=== PATIENT | female | born 1935 | race Caucasian/White ===

== ENCOUNTER → 2017-12-05 11:52 | Outpatient (CLI) | payer OTHER, SELFPAY ==
--- NOTE | 2017-12-05 | DI.US.S_ITS ---
PROCEDURE: US CAROTID DOPPLER BI INDICATIONS: VISUAL DISTRUBANCE TECHNIQUE: Color and pulse Doppler interrogation was performed of both carotid systems, with image documentation and velocity measurements. COMPARISON: [facility], , CAROTID ARTERY DOPPLER BILAT, 06/23/2011, 11:12. [facility], [place], CAROTID ARTERY DOPPLER BILAT, 03/13/2007, 11:40. FINDINGS: Stenosis calculations are based on SRU (Society of Radiologists in Ultrasound) criteria. Right side: Brachial blood pressure: 147/80 mm Hg. Common carotid artery peak systolic velocity: 68 cm/sec. Internal carotid artery peak systolic velocity: 53 cm/sec. Internal carotid artery end diastolic velocity: 18 cm/sec. External carotid artery peak systolic velocity: 54 cm/sec. ICA/CCA peak systolic ratio: 0.8. Lee scale imaging description: Minimal scattered plaque. Percent internal carotid artery stenosis: Less than 50%. Vertebral artery: Not visualized. Left side: Brachial blood pressure: 157 hours 73 mm Hg. Common carotid artery peak systolic velocity: 101 cm/sec. Internal carotid artery peak systolic velocity: 85 cm/sec. Internal carotid artery end diastolic velocity: 27 cm/sec. External carotid artery peak systolic velocity: 56 cm/sec. ICA/CCA peak systolic ratio: 18. Lee scale imaging description: Minimal scattered plaque. Percent internal carotid artery stenosis: Less than 50%. Vertebral artery: Flow direction is antegrade. IMPRESSION: Less than 50% bilateral internal carotid artery stenosis which is stable compared to prior exam. Dictated by: Per SIMMS Interpreted: Wanda Beach MD on 12/05/2017 at 12:55 Approved by: Tonie Valdivia M.D. on 12/06/2017 at 8:48
== END ==
PROVIDERS: Family Provider Family Medicine; PCP Family Medicine; Visit Provider Optometrist
DX: I65.23 Occlusion and stenosis of bilateral carotid arteries (principal); H53.9 Unspecified visual disturbance
CPT/HCPCS: 93880

== ENCOUNTER 2023-05-23 18:11 | Emergency (ER) | payer OTHER, SELFPAY ==
[2023-05-23] VITALS (7 sets, daily range): BP systolic 130–149; BP diastolic 58–100; PULSE 67–86; RESP 22–23; TEMP 36.3–36.6; O2SAT 94–95; BMI 19.5
--- NOTE | 2023-05-23 18:23 | DI.RAD.S_ITS ---
PROCEDURE: XR CHEST 1V INDICATIONS: cough TECHNIQUE: One view of the chest was acquired. COMPARISON: None. FINDINGS: Surgical changes and devices: Cardiac valvular device in place. Lungs and pleura: Lungs are clear. No pleural effusions or pneumothorax. Hyperaeration. No focal consolidation. Mediastinum: Mediastinal contours appear normal. Heart size is normal. Bones and chest wall: No suspicious bony lesions. Overlying soft tissues appear unremarkable. IMPRESSION: No acute cardiopulmonary abnormalities or focal airspace disease. Findings compatible with chronic obstructive pulmonary physiology. Dictated by: Bishop Wells M.D. on 05/23/2023 at 19:18 Approved by: Bishop Wells M.D. on 05/23/2023 at 19:19
[2023-05-23 19:40] LABS: Influenza A - CEPHEID Flu A NEGATIVE (NEGATIVE); Influenza B - CEPHEID Flu B NEGATIVE (NEGATIVE); Respiratory Syncytial Virus Negative (Negative)
[2023-05-23 19:49] LABS: COVID-19 CEPHEID 4-PLEX PCR POSITIVE (Negative)
--- NOTE | 2023-05-23 19:55 | PC.NURSE ---
Pt c/o that she has been waiting for hours and hasn't eaten all day. Pt given snacks. Dr De Luna now at bedside to discuss results.
--- NOTE | 2023-05-23 19:57 | ED.GENADULT ---
HPI - General Adult General Chief complaint: Shortness of Breath/Dyspnea Stated complaint: cough/can't sleep Time Seen by Provider: 05/23/23 18:23 Source: patient Mode of arrival: Wheelchair History of Present Illness HPI narrative: Patient is an 88-year-old female. Has a history of COPD. Not on home oxygen. Patient's tested positive for COVID about 1 week ago. She is here for evaluation of a cough which is causing her to have problems sleeping. The cough has been present for the past week or so but seems to have worsened last evening. No fevers. No belly pain. No chest pain. No change in her respiratory status. Related Data Home Medications Medication Instructions Recorded Confirmed Fish Oil (#FISH OIL CONCENTRATE) 2,000 sgl PO Q DAY ##0 05/10/11 01/09/18 VITAMIN D (Vitamin D3) 2,000 unit PO QDAY ##0 08/18/12 01/09/18 cyanocobalamin (vitamin B-12) 50 50 mcg PO ##0 10/28/15 01/09/18 mcg tablet (Vitamin B-12) vitamin E 100 unit capsule 100 unit PO #0 caps 10/28/15 01/09/18 [DIM] ##0 05/11/16 01/09/18 [PARI] ##0 08/11/16 01/09/18 [QUERCETIN] ##0 08/11/16 01/09/18 Resmed Airsense 10 CPAP #1 ea 07/13/18 07/13/18 Previous Rx's Medication Instructions Recorded Peak Flow Meter 1 dev INH BID PRN ##1 10/28/15 [NALTREXONE] 2 mg PO QDAY #100 caps 04/07/16 Allergies Allergy/AdvReac Type Severity Reaction Status Date / Time wheat [WHEAT] Allergy Severe SOB Unverified 05/23/23 18:22 diclofenac [DICLOFENAC] Allergy Unknown Unverified 05/23/23 18:22 lidocaine [LIDOCAINE] Allergy Unknown FELT Unverified 05/23/23 18:22 DRUGGED Penicillins [PENICILLINS] Allergy Unknown FAINTED;VOM Unverified 05/23/23 18:22 IT Review of Systems Constitutional Constitutional: Reports system reviewed and no additional complaints, except as documented Cardiovascular Cardiovascular: Reports system reviewed and no additional complaints, except as documented Respiratory Respiratory: Reports system reviewed and no additional complaints, except as documented Integumentary/Breasts Skin/Breast: Reports system reviewed and no additional complaints, except as documented Patient History Medical History Obstructive sleep apnea History of aortic valve replacement (08/06/16) Heterozygous factor V Leiden mutation (07/14/16) Malignant neoplasm of upper lobe of right lung (06/18/16) Mild intermittent asthma without complication (01/06/16) Basal cell carcinoma (BCC) (10/28/15) Multiple actinic keratoses (10/28/15) Cardiac arrhythmia (08/30/13) Sinoatrial node dysfunction (08/30/13) Aortic valve disorder (08/30/13) Anemia Vitamin D deficiency Curvature of spine (09/25/10) Osteoporosis (09/25/10) Social History Smoking Status: Never smoker Smoking Status: Never smoker Substance Use Type: does not use Exam Initial Vital Signs Initial Vital Signs: Vital Signs Temperature 97.4 F L 05/23/23 18:18 Pulse Rate 73 05/23/23 18:18 Respiratory Rate 22 05/23/23 18:18 Blood Pressure 130/58 L 05/23/23 18:18 Pulse Oximetry 94 05/23/23 18:18 Oxygen Delivery Method Room Air 05/23/23 18:18 Resp Effort & Inspection: normal respiratory effort Auscultation: clear to auscultation bilaterally Cardio Rate: regular rate Rhythm: regular rhythm Neuro General: patient alert and patient awake Course Orders Ordered: ED Orders 05/23/23 18:23 XR chest 1V Stat 05/23/23 18:50 Covid-19 + FLU A/B + RSV - PCR Stat Vital Signs Vital signs: Vital Signs - 8 hr 05/23/23 18:18 05/23/23 18:45 05/23/23 18:46 Temperature 97.4 F L Pulse Rate 73 67 68 Respiratory Rate 22 23 Blood Pressure 130/58 L Pulse Oximetry 94 94 94 Oxygen Delivery Method Room Air 05/23/23 18:46 05/23/23 19:00 05/23/23 19:00 Temperature Pulse Rate 67 Respiratory Rate 22 Blood Pressure 131/100 H 134/60 Pulse Oximetry 95 Oxygen Delivery Method 05/23/23 19:30 05/23/23 19:30 05/23/23 20:01 Temperature Pulse Rate 74 86 Respiratory Rate 23 22 Blood Pressure 149/65 H 149/65 H Pulse Oximetry 95 95 Oxygen Delivery Method Room Air 05/23/23 20:11 Temperature 97.8 F Pulse Rate Respiratory Rate Blood Pressure Pulse Oximetry Oxygen Delivery Method Medical Decision Making Lab Data Lab results reviewed: Yes I reviewed the patient's lab results. Labs: Lab Results 05/23/23 Range/Units 18:50 SARS-CoV-2 (PCR) Positive H (Negative) Influenza A (RT-PCR) Flu a negative (NEGATIVE) Influenza B (RT-PCR) Flu b negative (NEGATIVE) RSV (PCR) Negative (Negative) Imaging Data Chest x-ray: Radiologist's Impression: PROCEDURE: XR CHEST 1V INDICATIONS: cough TECHNIQUE: One view of the chest was acquired. COMPARISON: None. FINDINGS: Surgical changes and devices: Cardiac valvular device in place. Lungs and pleura: Lungs are clear. No pleural effusions or pneumothorax. Hyperaeration. No focal consolidation. Mediastinum: Mediastinal contours appear normal. Heart size is normal. Bones and chest wall: No suspicious bony lesions. Overlying soft tissues appear unremarkable. IMPRESSION: No acute cardiopulmonary abnormalities or focal airspace disease. Findings compatible with chronic obstructive pulmonary physiology ECG Data Attestation: I personally reviewed and interpreted this ECG as follows: Interpretation: Sinus rhythm Ventricular rate is [address] T wave changes MDM Narrative Medical decision making narrative: Patient is COVID positive. Chest x-ray is unremarkable. She has not hypoxic. Patient more concerned about not having anything to eat and for being in the emergency department for an hour and a half. No indication for admission to the hospital. There was some discussion about Paxlovid although she potentially has had symptoms for the past week. I did state that I would prescribe Paxlovid but I would need to check the rest of her medications to see if there need to be any adjustment we did talk about potential rebound COVID. They would like to hold on Paxlovid for now and talk with her primary care doctor. Patient was given return precautions. She expressed understanding and agreement. Discharge Plan Departure Patient Disposition: Home Clinical Impression: COVID-19 Instructions: COVID-19 Activity Restrictions/Additional Instructions: Continue to take all of your medications as directed. Follow all current CDC guidelines with regard to quarantine and your positive COVID-19 status. Contact your primary care doctor for a follow-up. Return to the emergency department for new symptoms Prescriptions: No Action Fish Oil (#FISH OIL CONCENTRATE) 2,000 sgl PO Q DAY Qty: 0 VITAMIN D (Vitamin D3) 2,000 unit PO QDAY Qty: 0 vitamin E 100 UNIT capsule 100 unit PO Qty: 0 cyanocobalamin (vitamin B-12) [Vitamin B-12] 50 MCG tablet 50 mcg PO Qty: 0 Peak Flow Meter 1 dev INH BID PRNQty: 1 0RF [NALTREXONE] 2 mg PO QDAY Qty: 100 0RF [DIM] Qty: 0 [PARI] Qty: 0 [QUERCETIN] Qty: 0 (DME) Resmed Airsense 10 CPAP Qty: 1 Dose Instruction: As directed Patient Comments: Pressure: 6-14 cmH2O DME: [facility] Rx Instructions: As directed Referrals: Arthur Tobar MD [Primary Care Provider] - Stand Alone Forms: Patient Portal/API
== END 2023-05-23 20:15 | disposition home or self-care (01) ==
PROVIDERS: Emergency Provider Emergency Medicine; Family Provider Family Medicine; PCP Family Medicine
DX: U07.1 COVID-19 (principal)
CPT/HCPCS: 0241U; 71045; 93005; 99282; 99284